=== PATIENT | male | born 1970 | race Two or more races ===

== ENCOUNTER 2019-06-26 07:06 | Outpatient (CLI) | payer OTHER | END 2019-06-26 07:18 | disposition home or self-care (01) | LOC: NUCLEAR 07:06 | DX: M46.1 Sacroiliitis, not elsewhere classified (principal) | CPT/HCPCS: 78315; A9503 ==

== ENCOUNTER 2025-09-20 17:23 | Emergency (ER) | payer OTHER ==
[~2025-09-20] VITALS: Ht 167.6 cm; Wt 77.1 kg
[2025-09-20] MEDS ORDERED: FAMOTIDINE/PF 20 MG/2 ML VIAL ONE (17:39)
[2025-09-20] MEDS ORDERED: DIPHENHYDRAMINE HCL 50 MG/ML VIAL 1ML ONE (17:39)
[2025-09-20] MEDS ORDERED: ONDANSETRON HCL 2 MG/ML VIAL ONE (17:39)
[2025-09-20] MEDS ORDERED: 0.9 % SODIUM CHLORIDE 1,000 ML IV ONE (17:45)
[2025-09-20] MEDS ORDERED: DIPHENHYDRAMINE HCL 50 MG/ML VIAL 1ML IV ONE (17:45)
[2025-09-20] MEDS ORDERED: FAMOtidine 10 MG/ML (4ML VIAL) IV PUSH ONE (17:45)
[2025-09-20] MEDS ORDERED: ONDANSETRON HCL 4 MG in 0.9 % SODIUM CHLORIDE 50 ML IV ONE (17:45)
[2025-09-20] MEDS ORDERED: 0.9 % SODIUM CHLORIDE 1,000 ML IV SCH (17:45)
[2025-09-20 18:04] LABS: BASO % 0.6 % (0.1-1.2); EOS # 0.09 (0.04-0.54); EOS % 1.1 % (0.7-7.0); LYMPH # 2.90 (1.18-3.74); LYMPH % 34.9 % (19.3-53.1); MEAN PLATELET VOLUME 9.60 fl (9.4-12.4); MONO # 0.44 (0.24-0.82); MONO % 5.3 % (4.7-12.5); NEUT # 4.80 (1.56-6.13); NEUT % 57.7 % (34.0-71.1); RED CELL DISTRIBUTION WIDTH 11.5 % (11.6-14.4)
[2025-09-20 18:08] LABS: ERYTHROCYTE SEDIMENTATION RATE 3 mm/hr (0-20)
[2025-09-20 18:21] LABS: INR 1.09
[2025-09-20 18:24] LABS: ALT/SGPT 34.0 U/L (12-78); AST/SGOT 25.0 U/L (15-37); BILIRUBIN TOTAL 1.17 mg/dL (0.3-1.2); BUN CREA RATIO 15.0 (7.0-25.0); CREATININE SERUM 1.06 mg/dL (0.70-1.30); GFR 72.01; GLOBULINA 3.4 G/DL (2.4-3.5); GLUCOSE FASTING 161.0 mg/dL (65-100); OSMOLALITY SERUM 284.0 MOSM/KG (275-295)
[2025-09-20 19:05] LABS: URINE APPEARANCE Cloudy; URINE BILIRRUBIN Negative (NEGATIVE); URINE BLOOD Negative; URINE COLOR Yellow; URINE GLUCOSE Negative (NEGATIVE); URINE LEUKOCYTE Negative; URINE NITRATE Negative; URINE PROTEIN Negative (NEGATIVE); URINE UROBILINOGEN 1.0 E.U./dl
[2025-09-20 19:06] LABS: URINE BACTERIA 14.4 uL (0.0-1933); URINE EPITHELIAL CELLS 3.8 uL (0.0-38.8); URINE RBC 5.1 uL (0.0-20.8); URINE WBC 11.3 uL (0.0-23.2)
[2025-09-20 19:14] LABS: URINE CAST 0.29 uL (0.0-1.40); URINE KETONE 80 (NEGATIVE)
[2025-09-20] MEDS ORDERED: POTASSIUM BICARBONATE/CIT AC 25 MEQ TABLET.EFF PO ONE (20:00)
[2025-09-20] MEDS ORDERED: PEPCID AC20 MG PO (20:08)
[2025-09-20] MEDS ORDERED: ZOFRAN8 MG PO (20:08)
== END 2025-09-20 21:29 | disposition home or self-care (01) ==
LOC: ER 17:24 → EDBD 17:24 → ER 17:24
PROVIDERS: General Practice
DX: F12.929 Cannabis use, unspecified with intoxication, unspecified (principal); F10.90 Alcohol use, unspecified, uncomplicated; Z88.0 Allergy status to penicillin; K52.89 Other specified noninfective gastroenteritis and colitis